=== PATIENT | male | born 1990 | race Caucasian/White ===

== ENCOUNTER 2019-11-08 09:41 | Inpatient (IN) | payer OTHER ==
[2019-11-08] MEDS ORDERED: SODIUM CHLORIDE 1,000 ML IV STA (09:59)
--- NOTE | 2019-11-08 09:59 | PDOC ---
Rapid Medical Evaluation Time Seen by Provider: 11/08/19 09:54 Medical Evaluation: Allergies Allergy/AdvReac Type Severity Reaction Status Date / Time Penicillins Allergy Verified 10/28/17 20:04 11/08/19 09:55 I performed a brief in-person evaluation of this patient. Pt is a 29 y/o male who presents to the ED with complaint of RLQ abdominal pain that started last night. He denies any fevers. He does admit to having diarrhea. Pt has a h/o DM and states that he has not been taking anything for his DM in "a long time". Pt is also complaining of a "ball on his right testicle" for the last one month. Pertinent physical exam findings: speaking in full and complete sentences, significant RLQ abdominal pain to palpation. I have ordered the following: saline lock, labs, fluids, CT abd/pelvis Patient to proceed to ED for further evaluation. Discharge Disposition - Diagnosis Right lower quadrant pain - Referrals - Patient Instructions - Post Discharge Activity
[2019-11-08] MEDS ORDERED: morphine CARPU-JECT 4 MG/1 ML DISP.SYRIN IVPUSH ONE ×2 (11:09→15:18)
--- NOTE | 2019-11-08 11:09 | PDOC ---
History of Present Illness - General Chief Complaint: Pain Stated Complaint: ABDOMINAL PAIN Time Seen by Provider: 11/08/19 09:54 History Source: Patient Exam Limitations: No Limitations - History of Present Illness Initial Comments: 11/08/19 11:01 HPI 29 y/o male with chronic back pain and DM2 ? (took himself off meds) who presents to the ED with complaint of RLQ abdominal pain that started last night. Pt describes the pain as "squeezing" and sensation that the area is going to "blow up." pt states pain is associated with right groin and scrotal/testicular pain. Exacerbated with movement, relieved with rest. Pt has difficulty walking due to the pain he also admits to chronic lower back pain, x 2-3 months, with b/l leg thigh pain and sharp "shocks" and shooting pains going down to the legs. He denies any fevers. He does admit to having diarrhea. Pt has a h/o DM and states that he has not been taking anything for his DM in "a long time". Pt is also complaining of a "ball on his right testicle" for the last one month. denies trauma +sexually active, uses protection, requesting HIV testing and not too concerned about STDs. Denies fever, chills, chest pain, SOB, palpitation, dizziness, weakness, N, V, D, abdominal pain, bladder and bowel problems, focal weakness/paresthesias, leg swelling/pain, rash. No sick contacts or travel. No new changes in medications. No suspicious food intake Allergies: PCN (unclear reaction) Past Medical History/PSH: as above Social history: Lives with family. No tobacco, use. +occ ETOH and +cannibis use Meds: none Family history: noncontributory PMD: none Review of systems Constitutional: no fevers or chills. No weakness HEENT: no headache or dizziness. No congestion. No visual/hearing disturbances. CVS: no cp or syncope. Resp: no sob. No cough. Gastrointestinal: +abdominal pain, No nausea, vomiting, diarrhea. Genitourinary: no urinary sx, hematuria. no urgency or frequency, no discharge. MUSCULOSKELETAL: No joint pain and swelling. No neck pain. +back pain. SKIN: no redness or skin changes, no discharge, no rash. No wounds. Hematologic: no easy bruising/bleeding. NEUROLOGIC: No headache, dizziness, LOC or altered mental status. No weakness, numbness or tingling. Psych: no anxiety or depression Allergic/Immunologic: no allergies All other systems reviewed and negative, or as documented in HPI. Physical exam General: awake and alert, uncomfortable appearing. HEENT: NCAT, PERRL, EOMI, clear conjunctiva, anicteric, moist mucus membranes, clear oropharynx, no oral lesions.. Neck: neck supple, FROM Resp: CTAB, normal and even respirations, no respiratory distress CVS: RRR, no murmurs, 2+ peripheral pulses throughout, no peripheral edema Abdomen: soft, +voluntary guarding. +RLQ TTP, no rebound. no rovsing's sign. : normal external genitalia, no lesions, normal testicular lie, no scrotal or testicular edema or tenderness. +cremaster reflex bilaterally. no hernia. Back: nontender, normal inspection and ROM MSK: no edema, EUGENE x4, ROM intact. No clubbing or cyanosis. normal bulk and tone. Extremities: no calf tenderness Neuro: alert, oriented appropriately; no focal neurologic deficits Psych: Calm and cooperative Skin: warm and well perfused, cap refill <2 sec, normal color, no rash or skin discoloration. 11/08/19 11:11 11/08/19 11:21 11/08/19 15:24 11/08/19 16:52 Past History - Medical History Allergies/Adverse Reactions: Allergies Allergy/AdvReac Type Severity Reaction Status Date / Time Penicillins Allergy Verified 10/28/17 20:04 Home Medications: Ambulatory Orders Clindamycin [Cleocin -] 300 mg PO Q6HPO #28 capsule 10/28/17 Insulin (LOG) Aspart [NovoLOG -] 0 units SQ TID 10/28/17 Insulin (Levemir) [Levemir Flexpen -] 26 units SQ ACBK 10/28/17 COPD: No Diabetes: Yes - Psycho-Social/Smoking History Smoking History: Never smoked Have you smoked in the past 12 months: No Information on smoking cessation initiated: No - Substance Abuse Hx (Audit-C & DAST Scrn) How often the patient has a drink containing alcohol: Monthly or less Number of drinks the patient has on a typical day: 3 or 4 How often the patient has six or more drinks on one occasion: Monthly Score: In Men: 4 or > Positive; In Women: 3 or > Positive: 4 Screen Result (Pos requires Nsg. Audit-10AR): Positive *Physical Exam - Vital Signs Last Vital Signs Temp Pulse Resp BP Pulse Ox 98.7 F 82 18 134/73 100 11/08/19 09:57 11/08/19 09:57 11/08/19 09:57 11/08/19 09:57 11/08/19 09:57 ED Treatment Course - LABORATORY CBC & Chemistry Diagram: 11/08/19 10:45 11/08/19 10:45 - RADIOLOGY Radiology Studies Ordered: Category Date Time Status ABDOMEN & PELVIS CT WITH CONTR [CT] Stat CT Scan 11/08/19 10:00 Ordered SCROTUM AND CONTENTS US [US] Stat Ultrasound 11/08/19 11:00 Ordered - Medications Given in the ED: ED Medications Discontinued Medications Generic Name Dose Route Start Last Admin Trade Name Freq PRN Reason Stop Dose Admin Sodium Chloride 1,000 mls @ 1,000 mls/hr 11/08/19 09:59 11/08/19 10:53 Normal Saline - IV 11/08/19 10:58 1,000 mls/hr ASDIR STA Administration Medical Decision Making - Medical Decision Making 11/08/19 12:22 Vital Signs Temp Pulse Resp BP Pulse Ox 98.7 F 82 18 134/73 100 11/08/19 09:57 11/08/19 09:57 11/08/19 09:57 11/08/19 09:57 11/08/19 09:57 DDx. testicular torsion, hernia, orchitis, epididymitis, UTI, pyelonephritis, appy, STD, perf, obstruction, mesenteric adenitis, terminal ileitis. vitals reviewed wnl, reassuring no fever, nontoxic, no septic findings Laboratory results revealed significant white blood cell count 14 point 5K, no anemia, electrolytes and creatinine are normal. Glucose is mildly elevated, patient does have a history of diabetes currently took himself off of medications. There is a mild elevation in his lipase CT abdomen pelvis to evaluate for appendicitis Scrotal ultrasound to evaluate for epididymitis versus orchitis versus torsion. Exam is as documented IV fluids and pain control with morphine, reassess HIV test requested as well as STD testing will check with a urinalysis. GC culture sent. Abstinence and safe sex precautions were provided and the patient demonstrated understanding. 11/08/19 15:24 CT with acute appy, 1cm. inflammatory changes, no abscess txs, coags added cefoxitin abx for coverage pt with pcn allergy (amox as child and skin testing positive, no anaphylaxis) surg cs with Dr Conley, NPO, IVF, abx, and will take to OR today admit to hospitalist service, Dr Gao 11/08/19 15:55 Discharge - Discharge Information Problems reviewed: Yes Clinical Impression/Diagnosis: Acute appendicitis Qualifiers: Acute appendicitis type: unspecified acute appendicitis type Qualified Code(s): K35.80 - Unspecified acute appendicitis Condition: Guarded - Admission Yes - Follow up/Referral - Patient Discharge Instructions - Post Discharge Activity
[2019-11-08 11:12] LABS: BASO % 0.1 % (0-2.0); EOS % 0.1 % (0-4.5); HEMATOCRIT 48.9 % (35.4-49); HEMOGLOBIN 16.4 GM/dL (11.7-16.9); LYMPH % 8.5 % (8-40); MCHC 33.6 g/dl (32.0-35.9); MEAN CELL VOLUME 83.4 fl (80-96); MEAN PLT VOLUME 8.2 fl (7.5-11.1); MONO % 7.5 % (3.8-10.2); NEUT % 83.8 % (42.8-82.8); PLATELET COUNT 240 K/MM3 (134-434); RBC 5.86 M/mm3 (4.00-5.60); RDW 13.5 % (11.9-15.9); WHITE BLOOD COUNT 14.5 K/mm3 (4.0-10.0)
[2019-11-08] MEDS ORDERED: morphine SULFATE 4 MG/ML VIAL ONE (11:19)
[2019-11-08 11:42] LABS: ALBUMIN 4.6 g/dl (3.4-5.0); BLOOD UREA NITROGEN 17.3 mg/dL (7-18); CALCIUM 9.6 mg/dL (8.5-10.1); CREATININE 0.8 mg/dL (0.55-1.3); POTASSIUM 3.9 mmol/L (3.5-5.1); TOT PROT 8.1 g/dl (6.4-8.2)
[2019-11-08] MEDS ORDERED: CEFOXITIN SODIUM 1 GM in DEXTROSE 5%-WATER - 100 ML IVPB ONE (15:07)
--- NOTE | 2019-11-08 15:59 | CONSULT ---
- Consultation REQUESTING PROVIDER: Melanie Warren MD CONSULT REQUEST: We have been asked to surgically evaluate this patient for acute appendicitis. PCP: none HISTORY OF PRESENT ILLNESS: JOLLY who is a 29 y/o male who presented w/ 24 hours of generalized to RLQ abdominal pain which is stabbing and 7/10; there is no radition from the RLQ e/to his right groin and scrotum ?; he has some nausea and no vomiting; pain worse w/moving and better while lying still; he has no other GI/ c/o. He is unemployed and smokes marijuana and uses social EtOH. PMHx: IDDM ( not compliant ) /back pain PSHx: right wrist ? ORIF Home Medications Medication Instructions Recorded Clindamycin [Cleocin -] 300 mg PO Q6HPO #28 capsule 10/28/17 Insulin (LOG) Aspart [NovoLOG -] 0 units SQ TID 10/28/17 Insulin (Levemir) [Levemir Flexpen 26 units SQ ACBK 10/28/17 -] Allergies Allergy/AdvReac Type Severity Reaction Status Date / Time Penicillins Allergy Verified 10/28/17 20:04 REVIEW OF SYSTEMS: CONSTITUTIONAL: Absent: fever, chills, diaphoresis, generalized weakness, malaise, loss of appetite, weight change CARDIOVASCULAR: Absent: chest pain, syncope, palpitations, irregular heart rate, lightheadedness, peripheral edema RESPIRATORY: Absent: cough, shortness of breath, dyspnea with exertion, wheezing, stridor, hemoptysis GASTROINTESTINAL: Absent: abdominal pain, abdominal distension, nausea, vomiting, diarrhea, constipation, melena, hematochezia GENITOURINARY: Absent: dysuria, frequency, urgency, hesitancy, hematuria, flank pain, genital pain MUSCULOSKELETAL: Absent: myalgia, arthralgia, joint swelling, back pain, neck pain SKIN: Absent: rash, itching, pallor HEMATOLOGIC/IMMUNOLOGIC: Absent: easy bleeding, easy bruising, lymphadenopathy NEUROLOGIC: Absent: headache, focal weakness, paresthesias, dizziness, unsteady gait, seizure, mental status changes, bladder or bowel incontinence PSYCHIATRIC: Absent: anxiety, depression, suicidal or homicidal ideation, hallucinations. PHYSICAL EXAM: GENERAL: Awake, alert, and fully oriented, in no acute distress. HEAD: Normal with no signs of trauma. EYES: sclera anicteric, conjunctiva clear. NECK: Normal ROM, supple without lymphadenopathy, JVD, or masses. ABDOMEN: Soft, tender RLQ not distended, normoactive bowel sounds, Rovsings/psoas and obturator signs are present; no masses. No organomegaly. No hernias; genitalia are normal. MUSCULOSKELETAL: Normal ROM at all joints. No bony deformities or tenderness. No CVA tenderness. UPPER EXTREMITIES: 2+ pulses, warm, well-perfused. No cyanosis. Cap refill <2 seconds. No peripheral edema. LOWER EXTREMITIES: 2+ pulses, warm, well-perfused. No calf tenderness. No jose pheral edema. NEUROLOGICAL: Normal speech, gait not observed. PSYCH: Cooperative. Good eye contact. Appropriate mood and affect. SKIN: Warm, dry, normal turgor, no rashes or lesions noted. Vital Signs Temperature 98.7 F 11/08/19 09:57 Pulse Rate 82 11/08/19 09:57 Respiratory Rate 18 11/08/19 09:57 Blood Pressure 134/73 11/08/19 09:57 O2 Sat by Pulse Oximetry (%) 100 11/08/19 09:57 Lab Results WBC 14.5 K/mm3 (4.0-10.0) H 11/08/19 10:45 RBC 5.86 M/mm3 (4.00-5.60) H 11/08/19 10:45 Hgb 16.4 GM/dL (11.7-16.9) 11/08/19 10:45 Hct 48.9 % (35.4-49) 11/08/19 10:45 MCV 83.4 fl (80-96) 11/08/19 10:45 MCHC 33.6 g/dl (32.0-35.9) 11/08/19 10:45 RDW 13.5 % (11.9-15.9) 11/08/19 10:45 Plt Count 240 K/MM3 (134-434) 11/08/19 10:45 Sodium 135 mmol/L (136-145) L 11/08/19 10:45 Potassium 3.9 mmol/L (3.5-5.1) 11/08/19 10:45 Chloride 99 mmol/L (98-107) 11/08/19 10:45 Carbon Dioxide 30 mmol/L (21-32) 11/08/19 10:45 Anion Gap 6 MMOL/L (8-16) L 11/08/19 10:45 BUN 17.3 mg/dL (7-18) 11/08/19 10:45 Creatinine 0.8 mg/dL (0.55-1.3) 11/08/19 10:45 Random Glucose 278 mg/dL (74-106) H 11/08/19 10:45 Calcium 9.6 mg/dL (8.5-10.1) 11/08/19 10:45 CT scan a/p reviewed and c/w acute appendicitis IMP: acute appendicitis PLAN: Laparoscopic possible open appendectomy; r/b/t/a's d/w the patient and informed consent obtained. Henry Conley MD FACS
[2019-11-08] MEDS ORDERED: BENZOIN/ALOE VERA/STORAX/TOLU 58 ML BOTTLE ONE (16:07)
[2019-11-08] MEDS ORDERED: SUCCINYLCHOLINE CHLORIDE 200 MG/10 ML SYRINGE ONE (16:15)
[2019-11-08] MEDS ORDERED: ROCURONIUM BROMIDE 50 MG/5 ML SYRINGE ONE (16:15)
--- NOTE | 2019-11-08 16:42 | PN ---
Teaching Attending Note Name of Resident: Nadir Reyes ATTENDING PHYSICIAN STATEMENT I saw and evaluated the patient. I reviewed the resident's note and discussed the case with the resident. I agree with the resident's findings and plan as documented. SUBJECTIVE: 29 year old male with known history of chronic back pain, IDDM (off med s), who presents to ED complaining of moderate to severe RLQ crampy and squeezing pain associated wtih right scrotal pain, not associated with fever nor chills. He admits to nothing by mouth since yesterday secondary to pain. OBJECTIVE: Gen appears appropriate for stated age neck; supple HEENT: EOMI, no oral lesions chest: clear to auscultation CVS: RRR abd: positive tenderness on palpation of the right lower quadrant; no rebound tenderness. abd is soft, hypoactive bowel sounds ext: no edema, feet are warm and dry cigarette paper tester: no motor nor sensory deficit ASSESSMENT AND PLAN: 1. Acute appendicitis - antibiotics initiated - NPO - surgery service already consulted - pain meds prn 2. IDDM - accuchecks and SSI every 6 hours while npo 3. DVT prophylaxis DW Dr Reyes and Dr Hernandez and agree with their plans of care.
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
[2019-11-08] MEDS ORDERED: cefOXitin SODIUM 2 GM VIAL (RESTRICTED TO ID) IVPB ONE ×2 (16:45)
[2019-11-08] MEDS ORDERED: DEXAMETHASONE SOD PHOSPHATE 4 MG/1 ML VIAL ONE (17:35)
[2019-11-08] MEDS ORDERED: NEOSTIGMINE METHYLSULFATE 0.5 MG/ML - 10 ML MDV ONE (17:35)
[2019-11-08] MEDS ORDERED: GLYCOPYRROLATE 0.2 MG/1 ML VIAL ONE (17:35)
[2019-11-08] MEDS ORDERED: BUPIVACAINE HCL/PF 0.5% (5 MG/ML) 30 ML VIAL IJ ONE (17:39)
--- NOTE | 2019-11-08 18:02 | OP ---
Operative Note - Note: Operative Date: 11/08/19 Pre-Operative Diagnosis: acute appendicitis Operation: laparoscopic appendectomy Findings: acute suppurative appendicitis Post-Operative Diagnosis: Same as Pre-op Surgeon: Henry Conley Screen Making Supervisor: Rosalinda Ann Anesthesiologist/CRITICAL CARE RN: Tripp Lobato Anesthesia: General Specimens Removed: appendix Estimated Blood Loss (mls): 5
[2019-11-08] MEDS ORDERED: ACETAMINOPHEN 1000 MG/100 ML VIAL (NON FORMULARY) IVPB PRN (18:04)
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
[2019-11-08] MEDS ORDERED: ACETAMINOPHEN INJECTION 100 ML IVPB ONE (18:31)
--- NOTE | 2019-11-08 19:15 | SURG ---
Surgery Tailings Man Note Tailings Man: Rosalinda Ann PA-C Date of Service: 11/08/19 Diagnosis: acute appendicitis Procedure: laparoscopic appendectomy I was present for the entirety of the operative procedure. For further detail, please refer to operative report. Visit type - Case Type Case Type: ED Admission - Emergency Emergency Visit: Yes ED Registration Date: 11/08/19 Care time: The patient presented to the Emergency Department on the above date and was hospitalized for further evaluation of their emergent condition. - New patient This patient is new to me today: Yes Date on this admission: 11/08/19
[2019-11-08] MEDS ORDERED: ONDANSETRON 4 MG/2 ML VIAL IVPUSH PRN (19:18)
[2019-11-08 20:39] VITALS: BMI 22.8
[2019-11-08] MEDS: oxyCODONE HCL 5 MG TABLET PO PRN (21:16)
[2019-11-08] MEDS: INSULIN SLIDING SCALE (NOVOLOG) 1 VIAL SQ SCH (21:52)
[2019-11-08] MEDS: morphine SULFATE 4 MG/ML VIAL IVPUSH PRN (23:59)
[2019-11-09] MEDS: oxyCODONE HCL 5 MG TABLET PO PRN ×2 (03:12→09:15)
[2019-11-09 06:10] VITALS: PULSE 65
[2019-11-09] MEDS: INSULIN SLIDING SCALE (NOVOLOG) 1 VIAL SQ SCH ×2 (06:11→11:48)
[2019-11-09] MEDS: morphine SULFATE 4 MG/ML VIAL IVPUSH PRN (06:12)
--- NOTE | 2019-11-09 09:05 | PN ---
Progress Note (short form) - Note Progress Note: Surgery POD #1 lap appy seen and examined at bedside with no complaints. Patient is tolerating his clears, he has been ambulating and passing gas. His pain is controlled with pain meds. Vital Signs Temp 98 F 11/09/19 06:00 Pulse 65 11/09/19 06:00 Resp 18 11/09/19 06:00 BP 119/63 11/09/19 06:00 Pulse Ox 98 11/08/19 20:00 Intake & Output 11/08/19 11/08/19 11/09/19 11:59 23:59 11:59 Intake Total 1450 Output Total 205 Balance 1245 Weight 150 lb 154 lb 6.4 oz Intake: IV 1450 Output: Urine 200 Estimated Blood Loss 5 Other: Voiding Method Toilet Toilet Bowel Movement No No Height 5 ft 9 in 5 ft 9 in Body Mass Index (BMI) 22.1 22.8 Weight Measurement Method Built in [facility] Weight Measurement Method Est/Stated by Patient CBC, BMP 11/08/19 10:45 11/08/19 10:45 PE: A&Ox3, NAD Unlabored resp on RA ABD: soft NT, ND, dressing c/d/i with surrounding tissue intact and no tracking erythema, edema collection or evidence of d/c B/L LE compartment soft, supple with +2 DP pulses Problem List - Problems (1) Acute appendicitis Assessment/Plan: POD#1 lap appy doing well -Advance to regular diet -Encourage OOB -Encourage IS -Plan for possible d/c home later today if tolerating his regular diet. Code(s): K35.80 - UNSPECIFIED ACUTE APPENDICITIS Qualifiers: Acute appendicitis type: unspecified acute appendicitis type Qualified Code(s): K35.80 - Unspecified acute appendicitis
[2019-11-09] MEDS ORDERED: oxyCODONE HCL 5 MG TABLET PO PRN ×2 (09:15→09:27)
[2019-11-09 09:36] LABS: BASO % 0.1 % (0-2.0); EOS % 0.1 % (0-4.5); HEMATOCRIT 42.6 % (35.4-49); HEMOGLOBIN 14.6 GM/dL (11.7-16.9); LYMPH % 15.4 % (8-40); MCH 28.5 pg (25.7-33.7); MCHC 34.4 g/dl (32.0-35.9); MEAN CELL VOLUME 82.8 fl (80-96); MEAN PLT VOLUME 8.6 fl (7.5-11.1); MONO % 7.2 % (3.8-10.2); NEUT % 77.2 % (42.8-82.8); PLATELET COUNT 213 K/MM3 (134-434); RBC 5.14 M/mm3 (4.00-5.60); RDW 13.3 % (11.9-15.9); WHITE BLOOD COUNT 11.5 K/mm3 (4.0-10.0)
[2019-11-09 10:03] VITALS: BP 132/71; TEMP 97.9
[2019-11-09 10:14] LABS: POTASSIUM 3.7 mmol/L (3.5-5.1)
[2019-11-09 10:29] LABS: BLOOD UREA NITROGEN 6.8 mg/dL (7-18); CALCIUM 9.4 mg/dL (8.5-10.1); CREATININE 0.7 mg/dL (0.55-1.3); PHOSPHOROUS 3.8 mg/dL (2.5-4.9)
--- NOTE | 2019-11-09 11:14 | PN ---
Progress Note, Physician Chief Complaint: s/p lap appendectomy under general anesthesia post op day one History of Present Illness: post op day one. - Current Medication List Current Medications: Active Medications Acetaminophen (Ofirmev Injection -) 1,000 mg IVPB Q6H PRN PRN Reason: PAIN LEVEL 4 - 6 Stop: 11/09/19 18:04 Last Admin: 11/08/19 18:30 Dose: 1,000 mg Documented by: Insulin Aspart (Novolog Vial Sliding Scale -) 1 vial SQ [facility]; Protocol Last Admin: 11/09/19 06:11 Dose: 4 units Documented by: Ondansetron HCl (Zofran Injection) 4 mg IVPUSH Q6H PRN PRN Reason: NAUSEA AND/OR VOMITING Oxycodone HCl (Roxicodone -) 10 mg PO Q4H PRN PRN Reason: PAIN LEVEL 6-10 Oxycodone HCl (Roxicodone -) 5 mg PO Q6H PRN PRN Reason: PAIN LEVEL 1-5 - Objective Vital Signs: Vital Signs Temperature 97.9 F 11/09/19 10:00 Pulse Rate 65 11/09/19 10:00 Respiratory Rate 16 11/09/19 10:00 Blood Pressure 132/71 11/09/19 10:00 O2 Sat by Pulse Oximetry (%) 98 11/08/19 20:00 Constitutional: Yes: Well Nourished Cardiovascular: Yes: WNL Respiratory: Yes: WNL Gastrointestinal: Yes: WNL Labs: CBC, BMP 11/09/19 08:52 11/09/19 08:52 Assessment/Plan Patient is doing well, complaining of pain which is helped by analgesics, no nausea or vomiting or other adverse anesthetic effects, dept of anesthesia will sign off care at this time
--- NOTE | 2019-11-09 13:54 | OP ---
DATE OF OPERATION: 11/08/2019 PREOPERATIVE DIAGNOSIS: Acute appendicitis. POSTOPERATIVE DIAGNOSIS: Acute appendicitis. PROCEDURE: Laparoscopic appendectomy. SURGEON: Henry Conley MD. TAWER: Rosalinda Ann PA-C ANESTHESIA: General. OPERATIVE FINDINGS: Acute suppurative appendicitis. The rest of the findings were unremarkable. PROCEDURE: The patient was placed on the operating room table in the supine position, and after induction of general anesthesia and placement of a Quintero catheter, the patient's abdomen was prepped with ChloraPrep and draped in sterile fashion. A timeout was taken, and pneumoperitoneum established at the umbilicus, using a Veress needle to an intraabdominal pressure of 15 mmHg. Next, a 12-mm suprapubic port just to the left of the midline was placed without incident, and then a left lower quadrant 5-mm port. The patient was placed in the head-down position and rotated to the left and laparoscopy carried out and previously noted findings were observed. The appendix was grasped and using blunt dissection and the LigaSure device mobilized from the lateral abdominal wall. The mesoappendix was serially divided using the LigaSure device as well. Once the base of the appendix was identified at the confluence of the 3 tinea on the cecum, a 60-mm Endo ELI purple load stapler was placed across the base of the appendix and fired. The appendix was then placed in an EndoCatch and brought up to the abdominal wall at the 12-mm port site. The suture line was inspected for hemostasis and/or leak, and there was found to be none. The appendix was then removed with the 12-mm port, and sent the pathological examination. The 12-mm port was replaced and pneumoperitoneum reestablished, and hemostasis checked for and noted to be good. At this point, the two 5-mm ports and the 12-mm port were removed, and the pneumoperitoneum evacuated. The defect at the suprapubic port site was closed with a single [id number]-ps-gmnxo 0 Vicryl suture, and the port sites were injected with 0.5% Marcaine. The skin edges were reapproximated with interrupted 4-0 Biosyn followed by Steri-Strips and Band-Aid dressings. The patient was then aroused from anesthesia and prior to this the Quintero catheter removed, and the patient transferred to post anesthesia care unit in stable condition awake and alert. Estimated blood loss 5 mL Replacements: crystalloid, Drains: none Specimen: appendix to pathology. I, Henry Conley, was physically present in the operating room from the time the patient was placed on the operating room table until he was transferred to the postanesthesia care unit in my accompaniment. MD VAMSI Cruz/[id number] [facility]
--- NOTE | 2019-11-09 14:29 | PN ---
Teaching Attending Note Name of Resident: Jacob Valle ATTENDING PHYSICIAN STATEMENT I saw and evaluated the patient. I reviewed the resident's note and discussed the case with the resident. I agree with the resident's findings and plan as documented. SUBJECTIVE: minimal pain in abd . passed flatus , no N.v. no SOB or CP . stopped his insulin fewe years ago, as he dis not think he needed it OBJECTIVE: NAD, MMM. CV: RRR Lungs: CTAb Abd: sfot, ND, minimal tenderness to palpation . laparoscopic wounds with steristrips and band aids. no erythema around wounds, no discharge noted. Ext : No edema or erythema on upper or lower extremities ASSESSMENT AND PLAN: 29 y/o man with h/o Dm , not on meds , and chronic back pain who presented with acute onset abd pain and was found tohave acute appendicitis , now s/p appendectomy 1- Acute appendicitis s/p appendectomy. tolerated diet, passed flatus. - d/c home with ibuprofena nd tylenol - f/u with sx in 1 week - source is controlled, no abscess or perforation , no need fro Abx 2- DM II: A1c is 11. counseled him about need fro insulin, eye , and foot exam diet and exercise. - he is agreeable to using insulin - start levemir 15 units /day per his weight - give Novolog fro SSI - he has a glucometer, advised to make a log of his sugar -refer to resident clinic as has no PCP. 3- scrotal pain, was due to radiation frm appendicitis. now resolved. US with microlithiasis b/l. f/u as out pt with uro and with US dc home
--- NOTE | 2019-11-09 22:13 | DS ---
Physical Exam: SUBJECTIVE: No overnight events. Patient seen and examined. C/o mild pain at incision sites, but decreased from the previous day. ROS negative except as above. OBJECTIVE: Vital Signs Period Temp Pulse Resp BP Sys/Alfaro Pulse Ox Last 24 Hr 97.9 F-98 F 65-65 16-18 119-132/63-71 98 PHYSICAL EXAM GENERAL: The patient is awake, alert, and fully oriented, in no acute distress. HEENT: NT, NC, sclera anicteric, conjunctiva clear. MMM LUNGS: Breath sounds equal, clear to auscultation bilaterally, no wheezes, no crackles, no accessory muscle use. HEART: Regular rate and rhythm, S1, S2 without murmur, rub or gallop. ABDOMEN: Soft, nontender, nondistended, normoactive bowel sounds, no guarding, no rebound, no hepatosplenomegaly, no masses. incision sites are clean and dry. TTP around incision sites EXTREMITIES: 2+ pulses, warm, well-perfused, no edema. NEUROLOGICAL: Normal speech, gait not observed. PSYCH: Normal mood, normal affect. SKIN: Warm, dry, normal turgor, no rashes or lesions noted. LABS Laboratory Results - last 24 hr 11/09/19 11/09/19 11/09/19 06:09 08:52 08:52 WBC 11.5 H RBC 5.14 Hgb 14.6 Hct 42.6 MCV 82.8 MCH 28.5 MCHC 34.4 RDW 13.3 Plt Count 213 MPV 8.6 Absolute Neuts (auto) 8.9 H Neutrophils % 77.2 Lymphocytes % 15.4 D Monocytes % 7.2 Eosinophils % 0.1 Basophils % 0.1 Nucleated RBC % 0 Sodium 136 Potassium 3.7 Chloride 101 Carbon Dioxide 26 Anion Gap 10 BUN 6.8 L Creatinine 0.7 Est GFR (CKD-EPI)AfAm 146.77 Est GFR (CKD-EPI)NonAf 126.64 POC Glucometer 219 Random Glucose 169 H Hemoglobin A1c % Calcium 9.4 Phosphorus 3.8 Magnesium 2.0 11/09/19 11/09/19 08:52 11:46 WBC RBC Hgb Hct MCV MCH MCHC RDW Plt Count MPV Absolute Neuts (auto) Neutrophils % Lymphocytes % Monocytes % Eosinophils % Basophils % Nucleated RBC % Sodium Potassium Chloride Carbon Dioxide Anion Gap BUN Creatinine Est GFR (CKD-EPI)AfAm Est GFR (CKD-EPI)NonAf POC Glucometer 291 Random Glucose Hemoglobin A1c % 11.1 H Calcium Phosphorus Magnesium HOSPITAL COURSE: 29 YO M PMH Diabetes p/w RLQ pain radiating to the testicles. In ED, pt was given IV Cefoxitin, IV Morphine PRN. WBCs were 14.5, glucose: 278, lipase 461. CT AP showed acute appendicitis and pt underwent appendectomy. Nausea was controlled w/ Zofran. Pt's symptoms improved & stable for discharge. Pt is noncompliant w/ DM medications. Type 2 DM w/ Hyperglycemia was managed w/ ISS ACHS inpt. Hgb A1C was 11.1. Pt was counseled and sent home w/ Levemir & Novolog. Scrotal US showed b/l testicular microlithiasis & Small L varicocele. Pt was instructed to f/u for this outpt. Date of Admission:11/08/19 Scrotal US showed b/l testicular microlithiasis & Small L varicocele. CTAP: acute appendicitis Date of Discharge: 11/09/19 Minutes to complete discharge: 41 Discharge Summary Problems reviewed: Yes Reason For Visit: ACUTE APPENDICITIS Condition: Improved - Instructions Diet, Activity, Other Instructions: Dr. Conley Discharge Instructions Dear CAROLINA TAVARES, Post Operative Instructions Physical activity Resume your normal everyday activity as tolerated no heavy lifting or exercise until seen by your surgeon. You may walk unlimited amounts of and climb stairs. You may resume driving the car when you feel safe and comfortable behind the wheel and no longer taking narcotics. Wound care If you have a bandage, leave it on, and keep dry for 48 hours. After that time discard the outer bandage. If there are tapes on the skin under the outer bandage, leave them in place. They will peel off in the next 7 to 10 days. Do Not peel them off. You may shower 2 days after surgery but do not submerge the incisions. If there are tapes present on the skin, they can get wet. Diet There are no dietary restrictions. Eat healthy, high-fiber foods. Drink 6 to 8 glasses of liquid each day. This will assist in keeping your bowels are regular. Pain management You may take Tylenol or acetaminophen or Ibuprofen (for example, Motrin, Advil etc.) Any pain prescription medication ordered should be taken as prescribed for moderate to severe pain. Call Dr. Conley for any of the following: Severe pain not relieved by medication Fever of 101 or higher Excessive bleeding or drainage on dressing Inability to urinate If you experience any chest pain or shortness of breath please seek emergency care. Call the office at [phone] for a post operative appointment in 7 - 10 days. medicine : for your diabetes, pelase check your sugar three times before each meal. take levemir daily in am 15 units adn Novolog before each meal per sliding scale. if you plan to miss a meal, do not take novolog. call your MD if you have sugar > 300 or < 80. if you have symptoms of low sugar, or sugar < 70 , drink orange juice and eat crackers. and call MD . Novolog: if sugar 150-200 take 2 units 201-250 take 4 units 251-300 take 6 units 301-350 take 8 units 351-400 take 10 units > 400 take 12 units and call MD you need to see a urologiist, fro evaluation of tiny stones in your testicles. you need repeat us in few mionths \yearly eye and foot exam . low salt, diabetic diet you need your cholesterol chekced withyour primary doctor your covid test is still pending . testing for sexually transmitted disease is still pending. your primary care has to follow on that Referrals: River Daniels MD [Staff Physician] - 1 Week Henry Conley MD [Staff Physician] - 1 Week Disposition: HOME - Home Medications Comprehensive Discharge Medication List: Ambulatory Orders Insulin (LOG) Aspart [NovoLOG -] See Protocol SQ DAILY #1 vial 11/09/19 Insulin (Levemir) [Levemir Vial] 15 unit SQ DAILY #1 vial 11/09/19 Oxycodone HCl/Acetaminophen [Percocet 5-325 mg Tablet] 1 - 2 tab PO Q4H PRN #20 tablet MDD 12 11/09/19 Syringe,Needle,Insuln,Sf 0.5ML [Easy Touch Insulin Safety] 1 each [facility] ASDIR #100 disp.syrin 11/09/19 This patient is new to me today: No Emergency Visit: Yes ED Registration Date: 11/08/19 Care time: The patient presented to the Emergency Department on the above date and was hospitalized for further evaluation of their emergent condition. Critical Care patient: No - Discharge Referral Referred to [facility] Med P.C.: No ATTENDING PHYSICIAN STATEMENT I saw and evaluated the patient. I reviewed the resident's note and discussed the case with the resident. I agree with the resident's findings and plan as documented. SUBJECTIVE: OBJECTIVE: ASSESSMENT AND PLAN:
--- NOTE | 2019-11-12 17:15 | PATH ---
Surgical Pathology Report Patient Name: CAROLINA TAVARES [facility]. Rec. #: [id number] /Age/Gender: 1990 (Age: 29) / M Account: [id number] Location: [address] [place] [address]/[facility] Taken: 11/08/2019 Received: 11/09/2019 Reported: 11/12/2019 Physicians: Henry Conley MD Specimen(s) Received APPENDIX Clinical History Acute appendicitis Final Diagnosis APPENDIX, LAPAROSCOPIC APPENDECTOMY: ACUTE APPENDICITIS AND PERIAPPENDICITIS. ACUTE SEROSITIS. Electronically Signed Mariposa Mccain M.D. Gross Description Received in formalin, labeled "appendix," is a 6.5 cm. in length vermiform appendix with a stapled margin of resection and moderate attached fat. The serosa is ballard-santiago with attached exudate. Sectioning reveals an unremarkable lumen. The wall of the appendix averages 0.1 cm. in thickness. [employer] sections are submitted in one cassette. /11/09/2019 saudi/11/09/2019
== END 2019-11-09 15:14 | disposition home or self-care (01) | DRG 225 ==
LOC: JER 09:41 → JERBED 16:10 → J5S 19:45
PROVIDERS: ADMIT Internal Medicine; ATTEND Internal Medicine
PROC: 0DTJ4ZZ Resection of Appendix, Percutaneous Endoscopic Approach (ICD-10-PCS; principal; 2019-11-08 16:00)
DX: K35.890 Other acute appendicitis without perforation or gangrene (principal); I86.1 Scrotal varices; N50.82 Scrotal pain; N50.89 Other specified disorders of the male genital organs; G89.29 Other chronic pain; R10.31 Right lower quadrant pain; E11.9 Type 2 diabetes mellitus without complications; M54.9 Dorsalgia, unspecified; Z91.14 Patient's other noncompliance with medication regimen; E11.65 Type 2 diabetes mellitus with hyperglycemia; Z72.89 Other problems related to lifestyle; R93.819 Abnormal radiologic findings on diagnostic imaging of unspecified testicle; F12.90 Cannabis use, unspecified, uncomplicated; R11.0 Nausea
CPT/HCPCS: 36415; 74177-TC; 76870-TC; 80048; 80053; 82962; 83036; 83690; 83735; 84100; 85025; 86850; 86900; 86901; 87389; 87491; 87591; 87661; 88304-TC; 94760; 99285-25; J0131; Q9967; U0003

== ENCOUNTER 2019-11-11 05:25 | Emergency (ER) | payer OTHER ==
[2019-11-11 06:02] VITALS: TEMP 98; BMI 23.7
[2019-11-11] MEDS ORDERED: ACETAMINOPHEN INJECTION 100 ML IVPB ONE (06:26)
[2019-11-11] MEDS ORDERED: LIDOCAINE 2.5%/PRILOCAINE 2.5% (5 Gram/TUBE) TP ONE ×3 (06:49→09:01)
--- NOTE | 2019-11-11 06:49 | PDOC ---
History of Present Illness - General Chief Complaint: Pain, Acute Stated Complaint: PENIS PROBLEM Time Seen by Provider: 11/11/19 05:36 - History of Present Illness Initial Comments: 11/11/19 06:41 HPI: 29 y/o M with hx of DM not on meds and recent appendectomy 3 days ago with vera placed now presenting with penile pain and swelling. He reported after the surgery he thought he had been circumcised because the foreskin was retracted and the glans was showing (he is uncircumcised). He had an erection at home and then urinated and then felt pain in his penis. Pain worsened and he started noticing a blsiter and came to the ER. Denies testicular pain, dysuria, hematuria, fever, chills. PMHx: as noted above ROS: as noted SHx: +tobacco use; no alcohol use; + rec drugs Allergies: NKDA ROS: GENERAL/CONSTITUTIONAL: No fever or chills. No weakness. HEAD, EYES, EARS, NOSE AND THROAT: No change in vision. No ear pain or discharge. No sore throat. CARDIOVASCULAR: No chest pain or shortness of breath RESPIRATORY: No cough, wheezing, or hemoptysis. GASTROINTESTINAL: No nausea, vomiting, diarrhea or constipation. GENITOURINARY: No dysuria, frequency, or change in urination. MUSCULOSKELETAL: No joint or muscle swelling or pain. No neck or back pain. SKIN: No rash NEUROLOGIC: No headache, vertigo, loss of consciousness, or change in strength/sensation. ENDOCRINE: No increased thirst. No abnormal weight change HEMATOLOGIC/LYMPHATIC: No anemia, easy bleeding, or history of blood clots. ALLERGIC/IMMUNOLOGIC: No hives or skin allergy. PE: GENERAL: Awake, alert, and fully oriented, no acute distress HEAD: No signs of trauma, normocephalic, atraumatic EYES: EOMI, sclera anicteric, conjunctiva clear ENT: Auricles normal inspection, hearing grossly normal, nares patent, oropharynx clear without exudates. Moist mucosa NECK: Normal ROM, no lymphadenopathy LUNGS: No increased work of breathing, symmetrical chest rise HEART: Regular rate, regular rhythm ABDOMEN: Soft, nondistended, nontender. No guarding, no rebound. No masses. No CVAT : edematous glans with blister and blood; paraphimosis present and unable to be retracted. MUSCULOSKELETAL: FROM NEUROLOGICAL: Cranial nerves II through XII grossly intact. Normal speech, stable gait, no focal sensorimotor deficits SKIN: Warm, Dry, normal turgor, no rashes or lesions noted Past History - Medical History Allergies/Adverse Reactions: Allergies Allergy/AdvReac Type Severity Reaction Status Date / Time Penicillins Allergy Verified 11/11/19 05:54 Home Medications: Ambulatory Orders Insulin (LOG) Aspart [NovoLOG -] See Protocol SQ DAILY #1 vial 11/09/19 Insulin (Levemir) [Levemir Vial] 15 unit SQ DAILY #1 vial 11/09/19 Oxycodone HCl/Acetaminophen [Percocet 5-325 mg Tablet] 1 - 2 tab PO Q4H PRN #20 tablet MDD 12 11/09/19 Syringe,Needle,Insuln,Sf 0.5ML [Easy Touch Insulin Safety] 1 each [facility] ASDIR #100 disp.syrin 11/09/19 COPD: No Diabetes: Yes HTN: Yes - Surgical History Appendectomy: Yes (laprascopic) - Psycho-Social/Smoking History Smoking History: Never smoked Have you smoked in the past 12 months: No Information on smoking cessation initiated: No - Substance Abuse Hx (Audit-C & DAST Scrn) How often the patient has a drink containing alcohol: Monthly or less Number of drinks the patient has on a typical day: 1 or 2 How often the patient has six or more drinks on one occasion: Never Score: In Men: 4 or > Positive; In Women: 3 or > Positive: 1 Screen Result (Pos requires Nsg. Audit-10AR): Negative In the last yr the pt used illegal drug/Rx for NonMed reason: Yes Score: Yes response is considered Positive: 1 Screen Result (Positive result requires Nsg. DAST-10): Positive *Physical Exam - Vital Signs Last Vital Signs Temp Pulse Resp BP Pulse Ox 98.0 F 79 18 125/86 99 11/11/19 05:55 11/11/19 05:55 11/11/19 05:55 11/11/19 05:55 11/11/19 05:55 Medical Decision Making - Medical Decision Making 11/11/19 07:02 29 y/o M with hx of DM not on meds and recent appendectomy 3 days ago with vera placed now presenting with penile pain and swelling concerning for paraphimosis. VSS, AF. PE with edematous glans with blister and paraphimosis present and unable to be retracted. -cbc, cmp, coags, t&s -[place], [facility] -emergent consult to dr jay; he is made aware and will eval the patient in the ER; recommended pain control and ice uintil he arrives -signed out to AM team to followup dispo per Dr Jay recs Discharge - Discharge Information Problems reviewed: Yes Clinical Impression/Diagnosis: Paraphimosis - Follow up/Referral - Patient Discharge Instructions - Post Discharge Activity
[2019-11-11] MEDS ORDERED: ACETAMINOPHEN 1000 MG/100 ML VIAL (NON FORMULARY) IVPB ONE (06:50)
--- NOTE | 2019-11-11 06:53 | PDOC ---
Attending Attestation - Resident Resident Name: LandryMichaeldevang - ED Attending Attestation I have performed the following: I have examined & evaluated the patient, The case was reviewed & discussed with the resident, I agree w/resident's findings & plan - HPI HPI: 11/11/19 06:53 Pt has a paraphimosis. No necrosis and no ischemia and no swelling of the glans. Pt has swelling of the foreskin around the base of the penis glans. Pt states that he had an appendectomy on Tuesday, and when he woke up he noticed that his foreskin was gone and assumed that he had a circumcision. Pt thought nothing of it. Yesterday (Tuesday) he noted that he had slight difficulty urinating. Today he woke with an erection and once it went doen he noticed that he tried to urinate and developed a serosanguineous bubble at 2 o'clock to 4 o'clock area at the side of the glans. Pt has slight pain of the foreskin and glans. He has DM and he has PCN allergy. no other PSHx. - Physicial Exam PE: 11/11/19 06:57 paraphimosis of the glans. Afebrile Pt has normal heart and lungs no abd pain no testicular pain - Medical Decision Making 11/11/19 06:57 Urology called; he will be here in 2 hrs he states. Recommends that we numb with emla and ice. Pt has sugar and ice placed on the glans. We will sign out patient to the day team. They can apply EMLA after sugar removal. Pt receievd IV ofirmev. Pt can get IV morphine once urologist is at the bedside prior to manipulation. We appempted paraphimosis reduction, but pt is in pain and not tolerating more than one attempt. Discharge - Discharge Information Problems reviewed: Yes Clinical Impression/Diagnosis: Paraphimosis Condition: Improved Disposition: HOME - Additional Discharge Information Prescriptions: Ibuprofen 800 mg PO TID PRN #12 tablet PRN Reason: Pain Clotrimazole/Betamet Diprop [Lotrisone Cream (Small Tube)] 1 applic TP BID #1 tube Clotrimazole/Betamet Diprop [Lotrisone Cream (Large Tube) -] 1 applic TP BID #1 tube - Follow up/Referral Referrals: Leland Briseno MD [Staff Physician] - - Patient Discharge Instructions Patient Printed Discharge Instructions: DI for Paraphimosis Additional Instructions: Today you were evaluated for paraphimosis which was treated by Dr. Briseno. Follow up with Dr. Briseno in clinic for follow up and to schedule a circumcision. You are being prescribed Lotrisone which is a topical cream that should be applied twice a day. Return to ED if condition worsens or symptoms return (ie. pain, redness, swelling, discharge etc). - Post Discharge Activity
[2019-11-11 07:11] LABS: BASO % 0.4 % (0-2.0); EOS % 0.7 % (0-4.5); HEMATOCRIT 38.6 % (35.4-49); LYMPH % 31.5 % (8-40); MCH 27.7 pg (25.7-33.7); MCHC 33.7 g/dl (32.0-35.9); MEAN CELL VOLUME 82.2 fl (80-96); MEAN PLT VOLUME 8.2 fl (7.5-11.1); NEUT % 57.4 % (42.8-82.8); PLATELET COUNT 223 K/MM3 (134-434); RBC 4.69 M/mm3 (4.00-5.60); RDW 13.2 % (11.9-15.9); WHITE BLOOD COUNT 5.4 K/mm3 (4.0-10.0)
[2019-11-11 07:25] LABS: INR 0.93 (0.83-1.09)
[2019-11-11 07:28] LABS: ACTIVATED PTT 26.3 SECONDS (25.2-36.5)
[2019-11-11 07:31] LABS: ALBUMIN 3.5 g/dl (3.4-5.0); BILIRUBIN,TOTAL 0.4 mg/dL (0.2-1); CALCIUM 9.2 mg/dL (8.5-10.1); CREATININE 0.9 mg/dL (0.55-1.3); TOT PROT 6.5 g/dl (6.4-8.2)
[2019-11-11] MEDS ORDERED: LIDOCAINE HCL 1%, 10 MG/ML (50 mL VIAL) SQ ONE (09:01)
[2019-11-11] MEDS ORDERED: LIDOCAINE HCL 1%, 10 MG/ML (20ML VIAL) ONE (09:06)
[2019-11-11 09:54] VITALS: BP 128/70; PULSE 70
--- NOTE | 2019-11-11 09:59 | PDOC ---
*Physical Exam - Vital Signs Last Vital Signs Temp Pulse Resp BP Pulse Ox 98.0 F 79 18 125/86 99 11/11/19 05:55 11/11/19 05:55 11/11/19 05:55 11/11/19 05:55 11/11/19 05:55 - Physical Exam General Appearance: Yes: Nourished, Appropriately Dressed, Mild Distress. No: Apparent Distress HEENT: positive: EOMI, Normal Voice Respiratory/Chest: positive: Lungs Clear, Normal Breath Sounds. negative: Respiratory Distress Cardiovascular: positive: Regular Rhythm, Regular Rate, S1, S2 Gastrointestinal/Abdominal: positive: Flat, Soft. negative: Tender Male Genitalia: positive: other (Swollen glans). negative: testicular tenderness, testicular mass, epididymus tender Lymphatic: negative: Adenopathy, Tenderness Extremity: positive: Normal Capillary Refill, Normal Range of Motion Integumentary: positive: Normal Color, Dry, Warm Neurologic: positive: Fully Oriented, Alert, Normal Mood/Affect ED Treatment Course - LABORATORY CBC & Chemistry Diagram: 11/11/19 06:45 11/11/19 06:45 - ADDITIONAL ORDERS Additional order review: Laboratory Results 11/11/19 11/11/19 11/11/19 07:00 07:00 06:45 PT with INR 11.00 INR 0.93 PTT (Actin FS) 26.3 Sodium 135 L Potassium 4.0 Chloride 98 Carbon Dioxide 30 Anion Gap 6 L BUN 16.0 Creatinine 0.9 Est GFR (CKD-EPI)AfAm 132.37 Est GFR (CKD-EPI)NonAf 114.21 Random Glucose 297 H Calcium 9.2 Total Bilirubin 0.4 AST 8 L ALT 18 Alkaline Phosphatase 80 Total Protein 6.5 Albumin 3.5 Blood Type O POSITIVE Antibody Screen Negative 11/11/19 06:45 RBC 4.69 MCV 82.2 MCHC 33.7 RDW 13.2 MPV 8.2 Neutrophils % 57.4 D Lymphocytes % 31.5 D Monocytes % 10.0 Eosinophils % 0.7 D Basophils % 0.4 D - Medications Given in the ED: ED Medications Discontinued Medications Generic Name Dose Route Start Last Admin Trade Name Freq PRN Reason Stop Dose Admin Acetaminophen 1,000 mg 11/11/19 06:50 11/11/19 06:52 Ofirmev Injection - IVPB 11/11/19 06:51 1,000 mg ONCE ONE Administration Lidocaine HCl 5 ml 11/11/19 09:01 11/11/19 09:10 Xylocaine 1% SQ 11/11/19 09:02 5 ml ONCE ONE Administration Lidocaine/Prilocaine 1 applic 11/11/19 06:49 11/11/19 09:06 Emla - TP 11/11/19 06:50 Not Given ONCE ONE Lidocaine/Prilocaine 1 applic 11/11/19 09:01 11/11/19 09:05 Emla - TP 11/11/19 09:02 1 applic ONCE ONE Administration Medical Decision Making - Medical Decision Making 29 yo male who is uncircumcised presented with paraphimosis for 5 hours. He r ecently had a appendectomy where he received a vera catheter. Dr. Briseno came into the ED to do a pudendal nerve block with reduction of the paraphimosis using an drew bandage to apply pressure to reduce the inflammation. He is being discharged on Lotrisone cream as recommended by Dr. Briseno and to follow up with him in office to schedule a circumcision. Discharge - Discharge Information Problems reviewed: Yes Clinical Impression/Diagnosis: Paraphimosis - Admission No - Additional Discharge Information Prescriptions: Clotrimazole/Betamet Diprop [Lotrisone Cream (Small Tube)] 1 applic TP BID #1 tube - Follow up/Referral Referrals: Leland Briseno MD [Staff Physician] - - Patient Discharge Instructions Patient Printed Discharge Instructions: DI for Paraphimosis Additional Instructions: Today you were evaluated for paraphimosis which was treated by Dr. Briseno. Follow up with Dr. Briseno in clinic for follow up and to schedule a circumcision. You are being prescribed Lotrisone which is a topical cream that should be applied twice a day. Return to ED if condition worsens or symptoms return (ie. pain, redness, swelling, discharge etc). - Post Discharge Activity
== END 2019-11-11 10:49 | disposition home or self-care (01) ==
LOC: JER 05:25
DX: N47.2 Paraphimosis (principal)
CPT/HCPCS: 36415; 80053; 85025; 85610; 85730; 86850; 86900; 86901; 99285-25; J0131

== ENCOUNTER 2020-09-16 09:25 | Emergency (ER) | payer OTHER ==
[2020-09-16 09:37] VITALS: BMI 22.1
[2020-09-16] MEDS ORDERED: LACTATED RINGERS SOLUTION 1000 ML INFUS.BAG IV ONE (10:20)
[2020-09-16] MEDS ORDERED: ONDANSETRON 4 MG/2 ML VIAL IVPUSH ONE (10:39)
[2020-09-16] MEDS ORDERED: ONDANSETRON 4 MG/2 ML VIAL ONE (10:40)
[2020-09-16 10:45] LABS: VENOUS BASE EXCESS 1.8 mmol/L (-2-2); VENOUS O2 SATURATION 95.5 % (70-80); VENOUS PCO2 29.6 mmHg (38-52); VENOUS PH 7.519 (7.310-7.410)
[2020-09-16 10:46] LABS: HEMATOCRIT 42.2 % (35.4-49); MCH 28.7 pg (25.7-33.7); MCHC 35.6 g/dl (32.0-35.9); MEAN CELL VOLUME 80.6 fl (80-96); MEAN PLT VOLUME 8.3 fl (7.5-11.1); PLATELET COUNT 242 K/MM3 (134-434); RBC 5.24 M/mm3 (4.00-5.60); RDW 13.1 % (11.9-15.9); WHITE BLOOD COUNT 10.3 K/mm3 (4.0-10.0)
[2020-09-16 11:12] LABS: ALBUMIN 4.3 g/dl (3.4-5.0); CALCIUM 9.6 mg/dL (8.5-10.1)
[2020-09-16 11:15] LABS: CREATININE 0.8 mg/dL (0.55-1.3)
[2020-09-16 11:16] LABS: TOT PROT 7.5 g/dl (6.4-8.2)
[2020-09-16] MEDS ORDERED: HALOPERIDOL LACTATE 5 MG/ML IM ONE (14:08)
[2020-09-16] MEDS ORDERED: HALOPERIDOL LACTATE 5 MG/ML ONE (14:28)
[2020-09-16 14:47] LABS: URINE APPEARANCE CLEAR; URINE BILIRUBIN NEGATIVE (NEGATIVE); URINE COLOR YELLOW; URINE GLUCOSE (UA) 3+ (NEGATIVE); URINE KETONE 4+ (NEGATIVE); URINE LEUK ESTERASE NEGATIVE (NEGATIVE); URINE NITRITE NEGATIVE (NEGATIVE); URINE PROTEIN TRACE (NEGATIVE); URINE UROBILINOGEN 0.2 mg/dL (0.2-1.0)
[2020-09-16 16:55] VITALS: BP 123/73; PULSE 65; TEMP 99.2
== END 2020-09-16 17:02 | disposition home or self-care (01) ==
LOC: JER 09:25
PROC: 3E023GC Introduction of Other Therapeutic Substance into Muscle, Percutaneous Approach (ICD-10-PCS; principal; 2020-09-16)
PROC: 3E033GC Introduction of Other Therapeutic Substance into Peripheral Vein, Percutaneous Approach (ICD-10-PCS; 2020-09-16)
DX: R11.2 Nausea with vomiting, unspecified (principal)
CPT/HCPCS: 36415; 80053; 81003; 82010; 82803; 82962; 83690; 85027; 99284-25

== ENCOUNTER 2020-10-03 17:18 | Emergency (ER) | payer OTHER ==
[2020-10-03 17:29] VITALS: BP 127/82; PULSE 67; TEMP 98.5; BMI 21.5
[2020-10-03] MEDS ORDERED: ONDANSETRON 4 MG/2 ML VIAL IVPUSH ONE (18:09)
[2020-10-03] MEDS ORDERED: MAG HYDROX/AL HYDROX/SIMETH 30 ML UNIT-DOSE CUP PO ONE (18:09)
[2020-10-03] MEDS ORDERED: SODIUM CHLORIDE 0.9% 500 ML INFUS.BAG IV ONE ×2 (18:09→20:11)
[2020-10-03] MEDS ORDERED: HALOPERIDOL LACTATE 5 MG/ML IM ONE (18:11)
[2020-10-03] MEDS ORDERED: HALOPERIDOL LACTATE 5 MG/ML ONE (18:46)
[2020-10-03] MEDS ORDERED: ONDANSETRON 4 MG/2 ML VIAL ONE (18:46)
[2020-10-03] MEDS ORDERED: MAG HYDROX/AL HYDROX/SIMETH 30 ML UNIT-DOSE CUP ONE (18:46)
[2020-10-03 19:22] LABS: VENOUS BASE EXCESS 6.8 mmol/L (-2-2); VENOUS O2 SATURATION 36.9 % (70-80); VENOUS PCO2 43.3 mmHg (38-52); VENOUS PH 7.477 (7.310-7.410)
[2020-10-03 19:42] LABS: BASO % 0.5 % (0-2.0); EOS % 0.1 % (0-4.5); HEMATOCRIT 45.8 % (35.4-49); HEMOGLOBIN 15.9 GM/dL (11.7-16.9); LYMPH % 20.8 % (8-40); MCH 28.5 pg (25.7-33.7); MCHC 34.6 g/dl (32.0-35.9); MEAN CELL VOLUME 82.3 fl (80-96); MEAN PLT VOLUME 8.6 fl (7.5-11.1); MONO % 5.9 % (3.8-10.2); NEUT % 72.7 % (42.8-82.8); PLATELET COUNT 251 K/MM3 (134-434); RBC 5.57 M/mm3 (4.00-5.60); RDW 13.2 % (11.9-15.9); WHITE BLOOD COUNT 6.3 K/mm3 (4.0-10.0)
[2020-10-03 19:52] LABS: CALCIUM 10.1 mg/dL (8.5-10.1)
[2020-10-03 19:53] LABS: ALBUMIN 4.6 g/dl (3.4-5.0); BLOOD UREA NITROGEN 9.8 mg/dL (7-18)
[2020-10-03 19:56] LABS: CREATININE 0.7 mg/dL (0.55-1.3)
[2020-10-03] MEDS ORDERED: INSULIN REGULAR HUMAN 100 UNITS/ML *VIAL IVPUSH ONE (20:11)
== END 2020-10-03 21:11 | disposition home or self-care (01) ==
LOC: JER 17:18
PROC: 3E023GC Introduction of Other Therapeutic Substance into Muscle, Percutaneous Approach (ICD-10-PCS; principal; 2020-10-03)
PROC: 3E013VG Introduction of Insulin into Subcutaneous Tissue, Percutaneous Approach (ICD-10-PCS; 2020-10-03)
PROC: 3E033GC Introduction of Other Therapeutic Substance into Peripheral Vein, Percutaneous Approach (ICD-10-PCS; 2020-10-03)
DX: E11.65 Type 2 diabetes mellitus with hyperglycemia (principal); F12.188 Cannabis abuse with other cannabis-induced disorder; F12.90 Cannabis use, unspecified, uncomplicated
CPT/HCPCS: 36415; 80053; 82010; 82803; 82962; 85025; 99284-25

== ENCOUNTER 2021-11-20 18:56 | Emergency (ER) | payer OTHER ==
[2021-11-20 19:05] VITALS: RESP 18; TEMP 97.4; BMI 22.1
[2021-11-20] MEDS ORDERED: SODIUM CHLORIDE 1,000 ML IV STA (22:01)
[2021-11-20] MEDS ORDERED: METOCLOPRAMIDE HCL INJECTION 10 MG/2 ML VIAL IVPUSH ONE (22:27)
[2021-11-20] MEDS ORDERED: METOCLOPRAMIDE HCL INJECTION 10 MG/2 ML VIAL ONE (22:35)
[2021-11-20 22:38] LABS: BASO % 0.3 % (0-2.0); EOS % 0.1 % (0-4.5); HEMATOCRIT 47.7 % (35.4-49); HEMOGLOBIN 16.1 GM/dL (11.7-16.9); LYMPH % 11.3 % (8-40); MCH 27.4 pg (25.7-33.7); MCHC 33.8 g/dl (32.0-35.9); MEAN PLT VOLUME 8.1 fl (7.5-11.1); MONO % 3.6 % (3.8-10.2); NEUT % 84.7 % (42.8-82.8); PLATELET COUNT 247 10^3/uL (134-434); RBC 5.89 M/mm3 (4.00-5.60); RDW 13.4 % (11.9-15.9); WHITE BLOOD COUNT 8.7 K/mm3 (4.0-10.0)
[2021-11-20 22:45] LABS: INR 1.07 (0.83-1.09); PROTHROMBIN TIME (PATIENT) 12.3 SEC (9.7-13.0)
[2021-11-20 22:48] LABS: ACTIVATED PTT 29.1 SECONDS (25.2-36.5)
[2021-11-20 23:20] LABS: ALBUMIN 4.8 g/dl (3.4-5.0); BLOOD UREA NITROGEN 12.2 mg/dL (7-18); CALCIUM 9.9 mg/dL (8.5-10.1)
[2021-11-20 23:23] LABS: CREATININE 0.8 mg/dL (0.55-1.3)
[2021-11-20 23:25] LABS: TOT PROT 8.3 g/dl (6.4-8.2)
[2021-11-21] LABS: VENOUS BASE EXCESS -1.7 mmol/L (-2-2); VENOUS O2 SATURATION 73.1 % (70-80); VENOUS PCO2 37.6 mmHg (38-52); VENOUS PH 7.399 (7.310-7.410)
[2021-11-21 01:25] VITALS: BP 124/71; PULSE 69
== END 2021-11-21 01:25 | disposition home or self-care (01) ==
LOC: JER 18:56
PROC: 3E033GC Introduction of Other Therapeutic Substance into Peripheral Vein, Percutaneous Approach (ICD-10-PCS; principal; 2021-11-20)
PROC: 3E0337Z Introduction of Electrolytic and Water Balance Substance into Peripheral Vein, Percutaneous Approach (ICD-10-PCS; 2021-11-20)
DX: R11.2 Nausea with vomiting, unspecified (principal)
CPT/HCPCS: 36415; 71046-TC-FY; 80053; 82803; 83690; 84484; 85025; 85610; 85730; 93005; 93010; 99285-25

== ENCOUNTER 2022-02-04 15:17 | Emergency (ER) | payer SELFPAY ==
[2022-02-04 15:33] VITALS: BP 137/94; PULSE 66; RESP 18; TEMP 98.1; BMI 21.5
[2022-02-04] MEDS ORDERED: LORazepam 2 MG/ML SDV VIAL IVPB ONE (17:32)
[2022-02-04] MEDS ORDERED: SODIUM CHLORIDE 0.9% 500 ML INFUS.BAG IV ONE ×2 (17:32→18:46)
[2022-02-04] MEDS ORDERED: ONDANSETRON 4 MG/2 ML VIAL IVPUSH ONE (17:33)
[2022-02-04] MEDS ORDERED: ONDANSETRON 4 MG/2 ML VIAL ONE (17:40)
[2022-02-04 18:30] LABS: BASO % 0.3 % (0-2.0); HEMOGLOBIN 16.7 GM/dL (11.7-16.9); MCH 27.3 pg (25.7-33.7); MCHC 33.4 g/dl (32.0-35.9); MEAN CELL VOLUME 81.8 fl (80-96); MEAN PLT VOLUME 8.6 fl (7.5-11.1); MONO % 3.6 % (3.8-10.2); NEUT % 81.1 % (42.8-82.8); PLATELET COUNT 287 10^3/uL (134-434); RBC 6.11 M/mm3 (4.00-5.60); RDW 13.5 % (11.9-15.9); WHITE BLOOD COUNT 7.9 K/mm3 (4.0-10.0)
[2022-02-04 18:37] LABS: BLOOD UREA NITROGEN 13.2 mg/dL (7-18); CALCIUM 10.4 mg/dL (8.5-10.1)
[2022-02-04 18:38] LABS: ALBUMIN 4.8 g/dl (3.4-5.0)
[2022-02-04 18:39] LABS: CREATININE 0.8 mg/dL (0.55-1.3)
[2022-02-04 18:42] LABS: BILIRUBIN,TOTAL 1.1 mg/dL (0.2-1); TOT PROT 8.4 g/dl (6.4-8.2)
[2022-02-04] MEDS ORDERED: INSULIN REGULAR HUMAN 100 UNITS/ML *VIAL IVPUSH ONE (19:33)
[2022-02-04] MEDS ORDERED: INSULIN REGULAR HUMAN 100 UNITS/ML *VIAL ONE (20:08)
== END 2022-02-04 21:21 | disposition home or self-care (01) ==
LOC: JER 15:17
PROC: 3E033NZ Introduction of Analgesics, Hypnotics, Sedatives into Peripheral Vein, Percutaneous Approach (ICD-10-PCS; principal; 2022-02-04)
DX: F12.188 Cannabis abuse with other cannabis-induced disorder (principal)
CPT/HCPCS: 36415; 80053; 82962; 85025; 99284-25